=== PATIENT | male | born 1970 | race Caucasian/White ===

== ENCOUNTER 2020-10-20 20:18 | Emergency (ER) | payer SELFPAY ==
--- NOTE | 2020-10-20 21:06 | CR ---
Indication: Crushing injury Technique: Three views of the left 2nd finger. Comparison: None Findings: The joint spaces are well maintained. No fracture or subluxation is identified. Impression: No fracture identified. Dictated by Nicolasa Deras MD @ Oct 20 2020 9:03PM Signed by Dr. Nicolasa Deras @ Oct 20 2020 9:04PM
[2020-10-20] MEDS ORDERED: Bupivacaine 0.5% 10 ML SDV INJECT ONE (21:10)
--- NOTE | 2020-10-20 22:02 | EDM.PDOC ---
ED HPI GENERAL MEDICAL PROBLEM - General Chief Complaint: Upper Extremity Injury/Pain Stated Complaint: LEFT ARM FINGER INJURY Time Seen by Provider: 10/20/20 20:44 Source of Information: Reports: Patient History Limitations: Reports: No Limitations - History of Present Illness INITIAL COMMENTS - FREE TEXT/NARRATIVE: HISTORY AND PHYSICAL: History of present illness: Patient is a 50-year-old male who presents to the ED today with concern of left hand finger laceration that occurred about 3-4 hours prior to travel to the ED. Patient states he was at work when a pipe fitting fell and hit another pipefitting and his finger was in between it. Patient states that he immediately applied pressure to his finger but was able to keep working. Patient states he is up-to-date on his tetanus and has been able to move his finger without deficit. Patient denies any other symptoms or concerns. Patient denies fever, chills, chest pain, shortness of breath, or cough. Denies headache, neck stiff ness, change in vision, syncope, or near syncope. Denies nausea, vomiting, abdominal pain, diarrhea, constipation, or dysuria. Has not noted any blood in urine or stool. Patient has been eating and drinking appropriately. Review of systems: As per history of present illness and below otherwise all systems reviewed and negative. Past medical history: As per history of present illness and as reviewed below otherwise noncontributory. Surgical history: As per history of present illness and as reviewed below otherwise noncontributory. Social history: See social history for further information Family history: As per history of present illness and as reviewed below otherwise noncontributory. Physical exam: General: Patient is alert, oriented, and in no acute distress. Patient sitting comfortably on exam table. Vital stable and reviewed by me. Nursing documentation reviewed. HEENT: Atraumatic, normocephalic, pupils equal and reactive bilaterally, negative for conjunctival pallor or scleral icterus, mucous membranes moist, TMs normal bilaterally, throat clear, neck supple, nontender, trachea midline. No drooling or trismus noted. No meningeal signs. No hot potato voice noted. Lungs: Clear to auscultation, breath sounds equal bilaterally, chest nontender. Heart: S1S2, regular rate and rhythm without overt murmur Abdomen: Soft, nondistended, nontender. Negative for masses or hepatosplenomegaly. Negative for costovertebral tenderness. Pelvis: Stable nontender. Genitourinary: Deferred. Rectal: Deferred. Skin: Intact, warm, dry. No lesions or rashes noted. Extremities: Bilateral hands are stained with oil like substances that regardless of scrubbing do not come completely clean. There is a 3cm subcutaneous irregular laceration of the distal palmar aspect of the 2nd digit without bleeding. Patient has full range of motion of the digit without deficit. Patient has full range of motion of remaining digits of the left hand as well as left wrist. Radial pulses grossly intact of the left upper extremity with capillary refill less than 2 seconds. Atraumatic, negative for cords or calf pain. Neurovascular unremarkable. Neuro: Awake, alert, oriented. Cranial nerves II through XII unremarkable. Cerebellum unremarkable. Motor and sensory unremarkable throughout. Exam nonfocal. Notes: Patient's laceration is moderately contaminated with oil-containing substances. Patient also waited to come to the emergency room for 3 to 4 hours from injury so will send antibiotic for prophylaxis. Signs and symptoms that would prompt return to the ED thoroughly discussed with patient. Discussed importance for follow-up with primary care provider. Voices understanding and is agreeable to plan of care. Denies any further questions or concerns at this time. Diagnostics: Hand XR Therapeutics: Sutures, lidocaine, sterile dressing placed by nursing staff Prescription: Keflex Impression: Finger laceration, left, second digit Plan: 1. Keep the area clean and dry. Continue to monitor for signs of infection as discussed. Sutures to be removed in 7-10 days. 2. Tylenol and/or ibuprofen as directed and as needed for pain management and discomfort. Take medication as prescribed. 3. Please follow-up with your primary care provider as discussed. Return to the ED as needed and as discussed. Definitive disposition and diagnosis as appropriate pending reevaluation and review of above. left pointer finger Pain Score (Numeric/FACES): 1 - Related Data Allergies Allergy/AdvReac Type Severity Reaction Status Date / Time No Known Allergies Allergy Verified 10/20/20 20:32 Home Meds: Home Meds cephALEXin [Keflex] 500 mg PO Q8H 7 Days #21 cap 10/20/20 [Rx] Past Medical History - Past Health History Medical/Surgical History: Denies Medical/Surgical History Social & Family History - Family History Family Medical History: No Pertinent Family History - Tobacco Use Tobacco Use Status *Q: Current Every Day Tobacco User Years of Tobacco use: 35 Packs/Tins Daily: 0.5 - Recreational Drug Use Recreational Drug Use: No Review of Systems - Review of Systems Review Of Systems: Comprehensive ROS is negative, except as noted in HPI. ED EXAM, GENERAL - Physical Exam Exam: See Below (see dictation) ED TRAUMA EXTREMITY PROCEDURES - Laceration/Wound Repair Left Distal Digit - 2nd (Index) Lac/Wound Length In cm: 3 Appearance: Subcutaneous, Irregular, Moderately Contaminated Distal NVT: Neuro & Vascular Intact, No Tendon Injury Anesthetic Type: Digital Local Anesthesia - Lidocaine (Xylocaine): 1% Plain Local Anesthetic Volume: Other (10cc) Skin Prep: Chlorhexidine (Hibiciens), Providone-Iodine (Betadine), Saline Saline Irrigation (cc's): 300 Exploration/Debridement/Repair: Wound Explored, In a Bloodless Field, Explored to Base, No Foreign Material Found Closed With: Sutures Suture Size: 4-0 # of Sutures: 9 Suture Type: Silk, Interrupted Drain Placement: No Sterile Dressing Applied: Nurse Tetanus Status Addressed: Yes (up to date) Complications: No Course - Vital Signs Last Recorded V/S: Last Vital Signs Temp 98 F 10/20/20 20:29 Pulse 64 10/20/20 20:29 Resp 18 10/20/20 20:29 BP 133/86 10/20/20 20:29 Pulse Ox 96 10/20/20 20:29 - Orders/Labs/Meds Meds: Medications Discontinued Medications Generic Name Dose Route Start Last Admin Trade Name Peterq PRN Reason Stop Dose Admin Bupivacaine HCl 10 ml 10/20/20 21:10 10/20/20 21:15 Sensorcaine-Mpf 0.5% INJECT 10/20/20 21:11 10 ml ONETIME ONE Administration Lidocaine HCl 5 ml 10/20/20 21:09 10/20/20 21:15 Xylocaine-Mpf 1% INJECT 10/20/20 21:10 5 ml ONETIME ONE Administration Departure - Departure Time of Disposition: 21:56 Disposition: Home, Self-Care 01 Clinical Impression: Finger laceration Qualifiers: Encounter type: initial encounter Finger: index finger Damage to nail status: without damage Foreign body presence: without foreign body Laterality: left Qualified Code(s): S61.211A - Laceration without foreign body of left index finger without damage to nail, initial encounter - Discharge Information Instructions: Achilles Tendinitis With Rehab-SportsMed, Walking Boot, Adult Referrals: PCP,None [Primary Care Provider] - Forms: ED Department Discharge Additional Instructions: The following information is given to patients seen in the emergency department who are being discharged to home. This information is to outline your options for follow-up care. We provide all patients seen in our emergency department with a follow-up referral. The need for follow-up, as well as the timing and circumstances, are variable depending upon the specifics of your emergency department visit. If you don't have a primary care physician on staff, we will provide you with a referral. We always advise you to contact your personal physician following an emergency department visit to inform them of the circumstance of the visit and for follow-up with them and/or the need for any referrals to a consulting specialist. The emergency department will also refer you to a specialist when appropriate. This referral assures that you have the opportunity for follow-up care with a specialist. All of these measure are taken in an effort to provide you with optimal care, which includes your follow-up. Under all circumstances we always encourage you to contact your private physician who remains a resource for coordinating your care. When calling for follow-up care, please make the office aware that this follow-up is from your recent emergency room visit. If for any reason you are refused follow-up, please contact the [facility] Emergency Department at and asked to speak to the emergency department charge nurse. [facility] [address] [place] [id number] [id number] 1. Keep the area clean and dry. Continue to monitor for signs of infection as discussed. Sutures to be removed in 7-10 days. 2. Tylenol and/or ibuprofen as directed and as needed for pain management and discomfort. Take medication as prescribed. 3. Please follow-up with your primary care provider as discussed. Return to the ED as needed and as discussed. Sepsis Event Note (ED) - Evaluation Sepsis Screening Result: No Definite Risk - Focused Exam Vital Signs: Vital Signs Temp Pulse Resp BP Pulse Ox 10/20/20 20:29 98 F 64 18 133/86 96
== END 2020-10-20 22:11 | disposition home or self-care (01) ==
LOC: MW.ED 20:18
DX: S61.211A Laceration without foreign body of left index finger without damage to nail, initial encounter (principal); F17.210 Nicotine dependence, cigarettes, uncomplicated; W23.0XXA Caught, crushed, jammed, or pinched between moving objects, initial encounter; Y92.89 Other specified places as the place of occurrence of the external cause; Y99.0 Civilian activity done for income or pay
CPT/HCPCS: 12002; 73140; 99283; J2001; J3490